=== PATIENT | male | born 1945 ===

== ENCOUNTER 2024-06-05 10:50 | Outpatient (CLI) | payer MEDICARE, OTHER | END 2024-06-05 10:51 | disposition home or self-care (01) | LOC: BICULT 10:50 | PROVIDERS: ATTEND Urology | DX: N40.1 Benign prostatic hyperplasia with lower urinary tract symptoms (principal); N43.3 Hydrocele, unspecified; N28.1 Cyst of kidney, acquired; N26.1 Atrophy of kidney (terminal); E11.9 Type 2 diabetes mellitus without complications; N50.3 Cyst of epididymis; Z90.79 Acquired absence of other genital organ(s) | CPT/HCPCS: 76870; 93976 ==

== ENCOUNTER 2024-07-27 09:05 | Inpatient (IN) | payer MEDICARE, OTHER ==
[2024-07-27 09:46] LABS: #Basophils 0.05 10x3/uL (0.0-0.2); %Basophils 0.6 % (0.0-1.0); %Eosinophils 1.1 % (0.0-10.0); %Lymphocytes 16.7 % (21.0-51.0); %Monocytes 4.5 % (0.0-10.0); %Neutrophils 76.5 % (42.0-75.0); Hemoglobin 11.7 g/dL (14.0-18.0); Mean Corpuscular HGB CONC 31.6 g/dL (32.0-36.0); Mean Corpuscular Hemoglobin 29.8 pg (27.0-31.0); Mean Corpuscular Volume 94.4 fL (78.0-98.0); Mean Platelet Volume 9.9 fL (7.4-10.4); Platelet Count 185 10x3/uL (130-400); Red Blood Cell (RBC) Count 3.92 mill/uL (4.70-6.10)
[2024-07-27] MEDS ORDERED: Ipratropium/Albuterol 3 ML NEB ONE (09:55)
[2024-07-27 10:39] LABS: Troponin I 0.075 ng/mL (< 0.028)
[2024-07-27] MEDS ORDERED: Senokot S 8.6-50 MG TAB PO PRN (11:29)
[2024-07-27] MEDS ORDERED: Ondansetron ODT 4 MG TAB PO PRN (11:29)
[2024-07-27] MEDS ORDERED: Acetaminophen 325 MG TAB PO PRN (11:29)
[2024-07-27] MEDS ORDERED: Ondansetron PF 4 MG/2 ML Vial IVP PRN (11:29)
[2024-07-27] MEDS ORDERED: Ipratropium/Albuterol 3 ML NEB NEB PRN (11:32)
[2024-07-27] MEDS ORDERED: Furosemide 40 MG (4 mL) VIAL ONE (11:33)
[2024-07-27] MEDS ORDERED: LevoFLOXacin 250 MG TAB ONE (11:47)
[2024-07-27] MEDS ORDERED: LevoFLOXacin 500 MG TAB ONE ×3 (11:47→11:48)
[2024-07-27] MEDS ORDERED: Dextrose 50% Abboject 50 ML SYRINGE SLOW IVP PRN (12:29)
[2024-07-27] MEDS ORDERED: Dextrose 5% in Water 1,000 ML IV PRN (12:29)
[2024-07-27] MEDS ORDERED: Glucagon 1 MG/ML KIT IM PRN (12:29)
[2024-07-27 13:09] LABS: Anion Gap 11 mmol/L (10-20); BUN (Urea Nitrogen) 16 mg/dL (8.4-25.7); Calc. Creatinine Clearance 0 mL/min (70-130); Calcium 8.3 mg/dL (7.8-10.44); Carbon Dioxide 24 mmol/L (23-31); Chloride 106 mmol/L (98-107); Estimated GFR 64; Glucose 213 mg/dL (83-110); Potassium 3.3 mmol/L (3.5-5.1); Sodium 138 mmol/L (136-145)
[2024-07-27 13:12] LABS: Troponin I 0.131 ng/mL (< 0.028)
[2024-07-27 14:57] LABS: Hemoglobin A1c 8.1 % (4.0-6.0)
[2024-07-27 14:59] LABS: Cardiac Risk 3.4 (Less than 4.5)
[2024-07-27 15:02] VITALS: BMI 42.3
[2024-07-27] MEDS: Insulin Glargine 30 UNITS/0.3 ML VIAL SC SCH (15:29)
[2024-07-27] MEDS: Furosemide 40 MG (4 mL) VIAL SLOW IVP SCH (15:29)
[2024-07-27] MEDS: Metoprolol Tartrate 25 MG TAB PO SCH (15:30)
[2024-07-27] MEDS: Potassium Chloride 20 MEQ TAB PO SCH (15:30)
[2024-07-27] MEDS: Aspirin 81 mg Enteric Coated Tablet PO SCH (15:30)
[2024-07-27] MEDS: Insulin Lispro 100 UNIT/ML 10 ML VIAL SC SCH (15:30)
[2024-07-27] MEDS: Enoxaparin 40 MG (0.4 mL) SYRINGE SC SCH (15:30)
[2024-07-27 16:25] LABS: Troponin I 0.144 ng/mL (< 0.028)
[2024-07-27] MEDS ORDERED: Metoprolol Tartrate 25 MG TAB PO SCH ×2 (21:00)
[2024-07-27] MEDS: Atorvastatin Calcium 40 MG TAB PO SCH (21:53)
[2024-07-27] MEDS: hydrALAZINE 25 MG TAB PO SCH (21:53)
[2024-07-27] MEDS: Sertraline 25 MG TAB PO SCH (21:53)
[2024-07-27] MEDS: Guaifenesin DM 100-10/5 ML UDCUP PO PRN (21:53)
[2024-07-27] MEDS: Insulin Lispro 100 UNIT/ML 10 ML VIAL SC PRN (21:53)
[2024-07-28 05:03] LABS: #Basophils Less than 0.03 10x3/uL (0.0-0.2); #Eosinophils Less than 0.03 10x3/uL (0.0-0.7); %Basophils 0.1 % (0.0-1.0); %Lymphocytes 9.1 % (21.0-51.0); %Monocytes 5.6 % (0.0-10.0); %Neutrophils 84.7 % (42.0-75.0); Hematocrit 33.7 % (42.0-52.0); Hemoglobin 10.7 g/dL (14.0-18.0); Mean Corpuscular HGB CONC 31.8 g/dL (32.0-36.0); Mean Corpuscular Hemoglobin 29.8 pg (27.0-31.0); Mean Corpuscular Volume 93.9 fL (78.0-98.0); Mean Platelet Volume 10.3 fL (7.4-10.4); Platelet Count 161 10x3/uL (130-400); RBC Distribution Width 16.1 % (11.5-14.5); Red Blood Cell (RBC) Count 3.59 mill/uL (4.70-6.10)
[2024-07-28 05:22] LABS: Anion Gap 11 mmol/L (10-20); BUN (Urea Nitrogen) 28 mg/dL (8.4-25.7); Calc. Creatinine Clearance 84 mL/min (70-130); Calcium 8.8 mg/dL (7.8-10.44); Carbon Dioxide 23 mmol/L (23-31); Chloride 109 mmol/L (98-107); Estimated GFR 59; Glucose 263 mg/dL (83-110); Potassium 4.3 mmol/L (3.5-5.1); Sodium 139 mmol/L (136-145)
[2024-07-28] MEDS: Insulin Lispro 100 UNIT/ML 10 ML VIAL SC PRN (06:08)
[2024-07-28] MEDS: Furosemide 40 MG (4 mL) VIAL SLOW IVP SCH (06:08)
[2024-07-28] MEDS: Fenofibrate Nanocrystallized 145 MG TAB PO SCH (09:29)
[2024-07-28] MEDS: Amlodipine 10 MG TAB PO SCH (09:29)
[2024-07-28] MEDS: Losartan 25 MG TAB PO SCH (09:29)
[2024-07-28] MEDS: Enoxaparin 40 MG (0.4 mL) SYRINGE SC SCH (09:29)
[2024-07-28] MEDS: Cholecalciferol 1,000 UNITS (25 MCG) TAB PO SCH (09:29)
[2024-07-28] MEDS: Insulin Glargine 30 UNITS/0.3 ML VIAL SC SCH ×3 (09:29→21:13)
[2024-07-28] MEDS: Insulin Lispro 100 UNIT/ML 10 ML VIAL SC SCH ×2 (09:30→11:26)
[2024-07-28] MEDS: Gabapentin 100 MG CAP PO SCH (09:30)
[2024-07-28] MEDS: Ferrous Sulfate 325 MG TAB PO SCH (09:30)
[2024-07-28] MEDS: Aspirin 81 mg Enteric Coated Tablet PO SCH (09:30)
[2024-07-28] MEDS: Oxybutynin 5 MG TAB PO SCH (09:30)
[2024-07-28] MEDS: Nebivolol HCl 5 MG TAB PO SCH (09:30)
[2024-07-28] MEDS ORDERED: Ipratropium/Albuterol 3 ML NEB NEB PRN (15:46)
[2024-07-29 04:46] LABS: #Basophils 0.04 10x3/uL (0.0-0.2); %Basophils 0.5 % (0.0-1.0); %Eosinophils 1.4 % (0.0-10.0); %Lymphocytes 13.2 % (21.0-51.0); %Monocytes 5.9 % (0.0-10.0); %Neutrophils 78.5 % (42.0-75.0); Hematocrit 35.2 % (42.0-52.0); Hemoglobin 11.4 g/dL (14.0-18.0); Mean Corpuscular HGB CONC 32.4 g/dL (32.0-36.0); Mean Corpuscular Hemoglobin 30.1 pg (27.0-31.0); Mean Corpuscular Volume 92.9 fL (78.0-98.0); Mean Platelet Volume 10.4 fL (7.4-10.4); Platelet Count 198 10x3/uL (130-400); RBC Distribution Width 16.2 % (11.5-14.5); Red Blood Cell (RBC) Count 3.79 mill/uL (4.70-6.10)
[2024-07-29 05:09] LABS: Anion Gap 12 mmol/L (10-20); BUN (Urea Nitrogen) 29 mg/dL (8.4-25.7); Calc. Creatinine Clearance 79 mL/min (70-130); Calcium 8.9 mg/dL (7.8-10.44); Carbon Dioxide 28 mmol/L (23-31); Chloride 103 mmol/L (98-107); Estimated GFR 54; Glucose 173 mg/dL (83-110); Potassium 3.7 mmol/L (3.5-5.1); Sodium 139 mmol/L (136-145)
[2024-07-29 11:50] VITALS: BP 163/71; TEMP 98.3
== END 2024-07-29 14:34 | disposition home or self-care (01) | DRG 291 ==
LOC: ERS 09:05 → 2NO 11:30 → ERHOLD 11:36 → 2NO 15:17
PROVIDERS: ADMIT Internal Medicine; ATTEND Hospitalist
DX: I13.0 Hypertensive heart and chronic kidney disease with heart failure and stage 1 through stage 4 chronic kidney disease, or unspecified chronic kidney disease (principal); I50.33 Acute on chronic diastolic (congestive) heart failure; J44.1 Chronic obstructive pulmonary disease with (acute) exacerbation; N18.4 Chronic kidney disease, stage 4 (severe); Z68.41 Body mass index [BMI] 40.0-44.9, adult; I24.89 Other forms of acute ischemic heart disease; E66.9 Obesity, unspecified; I44.30 Unspecified atrioventricular block; I25.10 Atherosclerotic heart disease of native coronary artery without angina pectoris; I35.0 Nonrheumatic aortic (valve) stenosis; E87.6 Hypokalemia; E11.22 Type 2 diabetes mellitus with diabetic chronic kidney disease; I5A Non-ischemic myocardial injury (non-traumatic); F10.90 Alcohol use, unspecified, uncomplicated; Z85.820 Personal history of malignant melanoma of skin; Z87.891 Personal history of nicotine dependence; Z95.5 Presence of coronary angioplasty implant and graft
CPT/HCPCS: 36415; 36416; 71045; 80048; 80061; 83036; 83880; 84484; 85025; 87428; 93005; 93010; 93306; 93798; 96374; J1650; J1815; J1940; J7620